=== PATIENT | female | born 1965 | race Hispanic/Latino ===

== ENCOUNTER 2018-01-05 11:21 | Emergency (ER) | payer OTHER ==
[2018-01-05] MEDS ORDERED: PROCHLORPERAZINE EDISYLATE 10 MG/2 ML VIAL ONE (11:38)
[2018-01-05] MEDS ORDERED: DiphenhydrAMINE HCL 50 MG/ML VIAL ONE (11:38)
[2018-01-05] MEDS ORDERED: SODIUM CHLORIDE 0.9% 1000ML 1,000 ML IV ONE (11:38)
[2018-01-05 11:58] LABS: BASOPHILS % (AUTO) 0.2 % (0.0-5.0); EOSINOPHILS % (AUTO) 0.2 % (0.0-8.0); HEMATOCRIT 40.8 % (36-48); LYMPHOCYTES % (AUTO) 11.6 % (21.0-51.0); MEAN CORPUSCULAR HEMOGLOBIN 30.1 pg (27.0-33.0); MEAN CORPUSCULAR HGB CONC 33.2 g/dL (32.0-36.0); MEAN CORPUSCULAR VOLUME 90.7 fL (79-99); MONOCYTES % (AUTO) 4.1 % (3.0-13.0); NEUTROPHILS % (AUTO) 83.9 % (40.0-77.0); PLATELET COUNT (AUTO) 198 K/uL (130-400); WHITE BLOOD COUNT (AUTO) 11.4 K/uL (4.8-10.8)
[2018-01-05 12:04] LABS: CREATININE 0.8 mg/dL (0.5-1.5); POTASSIUM 3.8 mmol/L (3.5-5.1)
[2018-01-05 12:08] LABS: BILIRUBIN,TOTAL 0.5 mg/dL (0.2-1.0); TOTAL PROTEIN, SERUM 8.5 g/dL (6.0-8.3)
[2018-01-05 12:14] LABS: APPEARANCE,URINE Clear (CLEAR); BILIRUBIN,URINE Negative (NEGATIVE); COLOR,URINE Yellow (YELLOW); GLUCOSE, URINE (UA) Negative (NEGATIVE); KETONES,URINE Negative (NEGATIVE); LEUKOCYTE ESTERASE ,URINE Negative (NEGATIVE); NITRATE,URINE Negative (NEGATIVE); OCCULT BLOOD,URINE Moderate (NEGATIVE); PH,URINE 6.5 (5.0-8.0); PROTEIN,URINE Negative (NEGATIVE); UROBILINOGEN,URINE 0.2 mg/dL (0.2-1.0)
[2018-01-05 12:26] LABS: BACTERIA,URINE None Seen /HPF (None Seen); SQUAMOUS EPITHELIAL CELL,UR Rare /HPF (0-2); WBC,URINE None Seen /HPF (0-1)
== END 2018-01-05 14:54 | disposition home or self-care (01) ==
LOC: EDH 11:21
DX: G43.909 Migraine, unspecified, not intractable, without status migrainosus (principal); M19.90 Unspecified osteoarthritis, unspecified site
CPT/HCPCS: 36415; 70450; 80053; 81001; 82550; 83690; 84484; 85025; 87040 ×2; 93005; 96374; 96375; 99284; J0780; J1200; J7030